=== PATIENT | female | born 1985 | race Two or more races ===

== ENCOUNTER 2020-09-09 16:21 | Emergency (ER) | payer MEDICAID ==
[~2020-09-09] VITALS: Ht 157.5 cm; Wt 68.0 kg
[2020-09-09] MEDS ORDERED: Ketorolac 30mg Inj IV ONE (16:45)
[2020-09-09 16:51] VITALS: BP 132/100
[2020-09-09 17:00] LABS: BASOPHILS % (AUTO) 0.9 % (0.0-2.0); EOSINOPHILS % (AUTO) 3.4 % (0.0-3.0); HEMATOCRIT 38.6 % (37.0-47.0); HEMOGLOBIN 12.9 G/DL (12.0-16.0); LYMPHOCYTES % (AUTO) 34.2 % (20.0-45.0); MEAN CORPUSCULAR VOLUME 90 FL (80-99); MONOCYTES % (AUTO) 7.9 % (1.0-10.0); NEUTROPHILS % (AUTO) 53.6 % (45.0-75.0); PLATELET COUNT 238 K/UL (150-450); RED BLOOD COUNT 4.27 M/UL (4.20-5.40); RED CELL DISTRIBUTION WIDTH 12.4 % (11.6-14.8); WHITE BLOOD COUNT 8.2 K/UL (4.8-10.8)
[2020-09-09 17:01] LABS: APPEARANCE,URINE CLEAR; BILIRUBIN, URINE NEGATIVE (NEGATIVE); COLOR,URINE PALE YELLOW; GLUCOSE, URINE (UA) NEGATIVE (NEGATIVE); KETONES,URINE NEGATIVE (NEGATIVE); LEUKOCYTE ESTERASE ,URINE NEGATIVE (NEGATIVE); NITRITE,URINE NEGATIVE (NEGATIVE); PH,URINE 7 (4.5-8.0); PROTEIN,URINE NEGATIVE (NEGATIVE); UROBILINOGEN,URINE NORMAL MG/DL (0.0-1.0)
[2020-09-09 17:24] LABS: INR 0.9 (0.9-1.1)
[2020-09-09 17:25] LABS: ALANINE AMINOTRANSFERASE 36 U/L (12-78); ALBUMIN 3.7 G/DL (3.4-5.0); ALBUMIN/GLOBULIN RATIO 1.1 (1.0-2.7); ALKALINE PHOSPHATASE 87 U/L (46-116); ASPARTATE AMINO TRANSFERASE 22 U/L (15-37); BILIRUBIN,TOTAL 0.7 MG/DL (0.2-1.0); BLOOD UREA NITROGEN 14 mg/dL (7-18); CALCIUM 8.3 MG/DL (8.5-10.1); CARBON DIOXIDE 27 MMOL/L (21-32); CREATININE 0.7 MG/DL (0.55-1.30)
[2020-09-09 17:35] LABS: CHLORIDE 103 MMOL/L (98-107); POTASSIUM 3.4 MMOL/L (3.5-5.1); SODIUM 138 MMOL/L (136-145)
--- NOTE | 2020-09-09 17:54 | Emergency Room Report ---
History of Present Illness General Chief Complaint: Chest Pain Source: Patient Present Illness HPI 35-year-old female with no signal past medical history here complaining of sudden onset of left-sided chest pain with radiation to left arm that started at exertion while cleaning at work. Also complains of left eye twitching at the same time. Denies any headache and dizziness, denies any syncope. Denies any cardiac history, hypertension, diabetes. Denies any nausea vomiting, diarrhea, URI symptoms, blurry vision and photophobia. Denies tobacco smoke, alcohol intake, drug use. Patient reports that she has been very anxious lately ever since her cousin about a month ago due to chest pain. Also complains of minor shortness of breath however denies pleuritic chest pain. Has not taken medication for symptom relief. Denies . Allergies: Coded Allergies: No Known Allergies (Unverified , 09/09/20) COVID-19 Screening Contact w/high risk pt: No Experienced COVID-19 symptoms?: No COVID-19 Testing performed [employer]: No Patient History Past Medical History: see triage record Past Surgical History: none Pertinent Family History: none Last Menstrual Period: 08/08/20 Now: No Immunizations: UTD Reviewed Nursing Documentation: PMH: Agreed; PSxH: Agreed Nursing Documentation-PMH Past Medical History: No Stated History Review of Systems All Other Systems: negative except mentioned in HPI Physical Exam Vital Signs Date Time Temp Pulse Resp B/P (MAP) Pulse Ox O2 Delivery O2 Flow Rate FiO2 09/09/20 16:25 98.6 90 19 141/103 (116) 97 Room Air 09/09/20 16:51 99 Sp02 EP Interpretation: reviewed, normal General Appearance: alert, mild distress Head: normocephalic, atraumatic Eyes: bilateral eye normal inspection, bilateral eye PERRL ENT: hearing grossly normal, normal pharynx, no angioedema, normal voice Neck: full range of motion, supple, thyroid normal, no meningismus, no bony tend, supple/symm/no masses Respiratory: chest non-tender, lungs clear, normal breath sounds, no rhonchi, no respiratory distress, no retraction, no wheezing, speaking full sentences Cardiovascular #1: regular rate, rhythm, no edema Cardiovascular #2: 2+ carotid (R), 2+ carotid (L), 2+ radial (R), 2+ radial (L), 2+ dorsalis pedis (R), 2+ dorsalis pedis (L) Gastrointestinal: normal bowel sounds, non tender, soft, non-distended, no guarding, no rebound Rectal: deferred Genitourinary: no CVA tenderness Musculoskeletal: back normal, normal range of motion, no calf tenderness, gait/station normal, non-tender Neurologic: alert, motor strength/tone normal, oriented x3, sensory intact, responsive, speech normal Psychiatric: judgement/insight normal, memory normal, mood/affect normal, no suicidal/homicidal ideation Reflexes: 3+ bicep (R), 3+ bicep (L), 3+ tricep (R), 3+ tricep (L), 3+ knee (R), 3+ knee (L) Skin: no rash Lymphatic: no adenopathy Medical Decision Making PA Attestation All my diagnosis and treatment plans were reviewed ad discussed with my supervising physician Dr. Layton Diagnostic Impression: Primary Impression: Chest pain ER Course 35-year-old female with no signal past medical history here complaining of sudden onset of left-sided chest pain with radiation to left arm that started at exertion while cleaning at work. Also complains of left eye twitching at the same time. Denies any headache and dizziness, denies any syncope. Denies any cardiac history, hypertension, diabetes. Denies any nausea vomiting, diarrhea, URI symptoms, blurry vision and photophobia. Denies tobacco smoke, alcohol intake, drug use. Patient reports that she has been very anxious lately ever since her cousin about a month ago due to chest pain. Also complains of minor shortness of breath however denies pleuritic chest pain. Has not taken medication for symptom relief. Denies . Ddx considered but are not limited to: VT, Angina, COPD, GERD, Vital signs: are WNL, pt. is afebrile H&PE are most consistent with unspecified chest pain ORDERS: EKG, Chest XR, cardiac labs(troponin, CBC, CMP, BNP, Motrin, Pepcid Chest pain most likely secondary to anxiety and acid reflux advised patient to follow-up with wireless communications engineer ED INTERVENTIONS: Pepcid, Zofran, NS bolus, Toradol which patient reported that felt much better after administration of medication DISCHARGE: At this time pt. is stable for d/c to home. Will provide printed patient care instructions, and any necessary prescriptions. Care plan and follow up instructions have been discussed with the patient prior to discharge. Advised patient to follow-up with wireless communications engineer if worsening symptoms return to the emergency room. Patient was evaluated in the context of the global COVID-19 pandemic, which necessitated consideration that the patient might be at risk for infection with the SARS-COV-2 virus that causes COVID-19. Institutional protocols and algorithms that pertain to the evaluation of patients at risk for COVID-19 are in a state of rapid change based on information relieved by multiple regulatory bodies including the CDC and the federal and state organizations. These policies and algorithms were followed during the patient's care in the ED. EKG Diagnostic Results Rate: normal Rhythm: NSR ST Segments: no acute changes Other Impression No acute ST changes ASA given to the pt in ED: No Chest X-Ray Diagnostic Results Chest X-Ray Diagnostic Results : Chest X-Ray Ordered: Yes # of Views/Limited/Complete: 1 View Indication: Chest Pain EP Interpretation: Yes PA Xray: Interpretation reviewed, by supervising MD, and agrees with findings. Interpretation: no consolidation, no effusion, no pneumothorax Impression: No acute disease Electronically Signed by: Sherrie Orellana PA-C Last Vital Signs Date Time Temp Pulse Resp B/P (MAP) Pulse Ox O2 Delivery O2 Flow Rate FiO2 09/09/20 17:30 98.6 09/09/20 16:51 88 18 132/100 99 Room Air 09/09/20 16:51 99 Disposition: HOME, SELF-CARE Condition: Stable Scripts Ibuprofen* (MOTRIN*) 600 Mg Tablet 600 MG ORAL Q6HR, #20 TAB Prov: Sherrie Echavarria 09/09/20 Famotidine* (Pepcid 20mg tablet*) 20 Mg Tablet 20 MG ORAL DAILY for Gerd, #30 TAB 0 Refills Prov: Sherrie Echavarria 09/09/20 Referrals: NON PHYSICIAN (PCP) Patient Instructions: Nonspecific Chest Pain, Heartburn Additional Instructions: Take medication as directed, follow-up with your primary doctor for referral to wireless communications engineer, if worsening symptoms return to the emergency room Sherrie Echavarria Sep 09, 2020 17:54
[2020-09-09] MEDS ORDERED: IBUPROFEN600 M1 ORAL (17:57)
[2020-09-09] MEDS ORDERED: FAMOTIDINE20 MG ORAL (17:57)
[2020-09-09 18:22] VITALS: BP 126/99
--- NOTE | 2020-09-10 15:31 | Diagnostic Imaging Report ---
Indication: Chest pain Technique: XRAY Chest 1v Comparison: None Findings: Heart size and mediastinal contours are within normal limits for AP technique. There is no focal airspace consolidation, pneumothorax or pleural effusion. Osseous structures demonstrate no acute abnormality. Impression: No radiographic evidence of acute cardiopulmonary disease.
== END 2020-09-09 18:24 | disposition home or self-care (01) ==
LOC: EMR 16:44
DX: R07.9 Chest pain, unspecified (principal)
CPT/HCPCS: 36415; 71045; 80053; 80307; 81003; 81025; 83880; 84484; 85025; 85379; 85610; 85730; 93005; 96361; 96374; 96375; J1885; J2405; J7030; S0028; Z7502; 99284